=== PATIENT | female | born 1980 | race African-American/Black ===

== ENCOUNTER 2017-09-20 01:14 | Inpatient (IN) | payer MEDICARE, OTHER ==
[~2017-09-20] VITALS: Ht 175.3 cm; Wt 184.0 kg
[2017-09-20 01:16] VITALS: BP 170/102; PULSE 99; RESP 20; TEMP 98.8; O2SAT 100
[2017-09-20] MEDS ORDERED: ARIP2 PO (01:32)
[2017-09-20] MEDS ORDERED: RISP.25 PO (01:32)
[2017-09-20] MEDS ORDERED: TRAZ50TA12 PO (01:32)
[2017-09-20 02:25] VITALS: BP 138/74; PULSE 92; RESP 20; O2SAT 97
[2017-09-20 02:44] LABS: AUTOMATED NEUTROPHIL # 5.7 TH/MM3 (1.8-7.7); BASOPHIL % 0.5 % (0.0-2.0); EOSINOPHIL # 0.1 TH/MM3 (0-0.4); EOSINOPHIL % 1.3 % (0.0-4.0); HEMATOCRIT 39.3 % (35.0-46.0); HEMOGLOBIN 13.2 GM/DL (11.6-15.3); LYMPH % 33.4 % (9.0-44.0); LYMPHOCYTE # 3.3 TH/MM3 (1.0-4.8); MEAN CELL VOLUME 91.1 FL (80.0-100.0); MEAN CORPUSCULAR HEMOGLOBIN 30.5 PG (27.0-34.0); MEAN CORPUSCULAR HGB CONC 33.5 % (32.0-36.0); MEAN PLATELET VOLUME 7.4 FL (7.0-11.0); MONO % 6.8 % (0.0-8.0); MONOCYTE # 0.7 TH/MM3 (0-0.9); PLATELET COUNT 352 TH/MM3 (150-450); RED BLOOD COUNT 4.32 MIL/MM3 (4.00-5.30); RED CELL DISTRIBUTION WIDTH 13.8 % (11.6-17.2); WHITE BLOOD COUNT 9.9 TH/MM3 (4.0-11.0)
[2017-09-20] MEDS ORDERED: traZODone HCL 100 MG TAB PO ONE (03:00)
[2017-09-20] MEDS ORDERED: OLANZapine ODT 10 MG TAB PO ONE (03:00)
[2017-09-20 03:14] LABS: ALBUMIN 3.8 GM/DL (3.4-5.0); ALT (GPT) 20 U/L (10-53); AST (GOT) 11 U/L (15-37); BICARBONATE 25.7 MEQ/L (21.0-32.0); BLOOD UREA NITROGEN 12 MG/DL (7-18); CALCIUM 8.9 MG/DL (8.5-10.1); CHLORIDE 109 MEQ/L (98-107); CREATININE 1.05 MG/DL (0.50-1.00); GLOMERULAR FILTRATION RATE 72 ML/MIN (>89); GLUCOSE,RANDOM 88 MG/DL (74-106); SODIUM (NA) 142 MEQ/L (136-145)
[2017-09-20 03:24] LABS: ALKALINE PHOSPHATASE 121 U/L (45-117); TOTAL BILIRUBIN ADULT 0.2 MG/DL (0.2-1.0); TOTAL PROTEIN 8.1 GM/DL (6.4-8.2)
--- NOTE | 2017-09-20 03:48 | PD ---
HPI Chief Complaint: Psychiatric Symptoms Time Seen by Provider: 02:13 Travel History International Travel<30 days: No Contact w/Intl Traveler<30days: No Traveled to known affect area: No History of Present Illness HPI 37-year-old black female presents emergency department requesting psychological evaluation. She states that she suffers from bipolar disorder, and schizoaffective disorder. She moved up from [place] to live with her mother 2 weeks ago. She had left her medications in [facility]. She has been off her medicines now for 2 weeks. She is having auditory hallucinations. She also has had thoughts of self-harm but has no plan on hurting herself. No homicidal ideation. No toxic ingestions. Patient states that she would like to get back on her medicines. PFSH Past Medical History Narrative Medical Bipolar, schizoaffective disorder Bipolar Disorder: Yes Diminished Hearing: No Schizophrenia: Yes Tetanus Vaccination: < 5 Years Influenza Vaccination: No ?: Not Past Surgical History Surgical History: No Previous Surgery Social History Alcohol Use: Yes Tobacco Use: Yes Substance Use: No Allergies-Medications (Allergen,Severity, Reaction): Coded Allergies: No Known Allergies (Unverified , 09/20/17) Reported Meds & Prescriptions Reported Meds & Active Scripts Active Reported Risperdal (Risperidone) 0.25 Mg Tab 0.25 Mg PO DAILY Trazodone (Trazodone HCl) 50 Mg Tab 50 Mg PO HS Abilify (Aripiprazole) 2 Mg Tab 2 Mg PO DAILY Review of Systems General / Constitutional: No: Fever Eyes: No: Visual changes HENT: No: Headaches Cardiovascular: No: Chest Pain or Discomfort Respiratory: No: Shortness of Breath Gastrointestinal: No: Abdominal Pain Genitourinary: No: Dysuria Musculoskeletal: No: Pain Skin: No Rash Neurologic: No: Weakness Psychiatric: Positive: Suicidal Ideations, Disorder of Thought, Mood Disorder, No: Anxiety, Depression, Homicidal Ideation Endocrine: No: Polydipsia Hematologic/Lymphatic: No: Easy Bruising Physical Exam Narrative GENERAL: Morbidly obese, well-developed patient. SKIN: Warm and dry. HEAD: Normocephalic and atraumatic. EYES: No scleral icterus. No injection or drainage. ENT: No nasal drainage noted. Mucous membranes pink. Airway patent. NECK: Supple, trachea midline. Moves head freely without obvious discomfort. CARDIOVASCULAR: Regular rate and rhythm without murmurs, gallops, or rubs. RESPIRATORY: Breath sounds equal bilaterally. No accessory muscle use. GASTROINTESTINAL: Abdomen soft, non-tender, nondistended. EXTREMITIES: No cyanosis or edema. BACK: Nontender without obvious deformity. No CVA tenderness. NEURO: Patient is alert and oriented. no sensorimotor deficits. Nonfocal. Normal speech. PSYCH: No delusions. Positive auditory but no visual hallucinations. Data Data Last Documented VS Vital Signs Date Time Temp Pulse Resp B/P (MAP) Pulse Ox O2 Delivery O2 Flow Rate FiO2 09/20/17 02:25 92 20 138/74 (95) 97 Room Air 09/20/17 01:16 98.8 Orders Orders Psych Screen (09/20/17 02:14) Complete Blood Count With Diff (09/20/17 02:22) Comprehensive Metabolic Panel (09/20/17 02:22) Thyroid Stimulating Hormone (09/20/17 02:22) Ed Urine Pregnancytest Poc (09/20/17 02:22) Drug Screen, Random Urine (09/20/17 02:22) Alcohol (Ethanol) (09/20/17 02:22) Olanzapine Odt (Zyprexa Zydis Odt) (09/20/17 03:00) Trazodone (Desyrel) (09/20/17 03:00) Labs Laboratory Tests Test 09/20/17 02:40 09/20/17 06:00 White Blood Count 9.9 TH/MM3 Red Blood Count 4.32 MIL/MM3 Hemoglobin 13.2 GM/DL Hematocrit 39.3 % Mean Corpuscular Volume 91.1 FL Mean Corpuscular Hemoglobin 30.5 PG Mean Corpuscular Hemoglobin Concent 33.5 % Red Cell Distribution Width 13.8 % Platelet Count 352 TH/MM3 Mean Platelet Volume 7.4 FL Neutrophils (%) (Auto) 58.0 % Lymphocytes (%) (Auto) 33.4 % Monocytes (%) (Auto) 6.8 % Eosinophils (%) (Auto) 1.3 % Basophils (%) (Auto) 0.5 % Neutrophils # (Auto) 5.7 TH/MM3 Lymphocytes # (Auto) 3.3 TH/MM3 Monocytes # (Auto) 0.7 TH/MM3 Eosinophils # (Auto) 0.1 TH/MM3 Basophils # (Auto) 0.0 TH/MM3 CBC Comment DIFF FINAL Differential Comment Blood Urea Nitrogen 12 MG/DL Creatinine 1.05 MG/DL Random Glucose 88 MG/DL Total Protein 8.1 GM/DL Albumin 3.8 GM/DL Calcium Level 8.9 MG/DL Alkaline Phosphatase 121 U/L Aspartate Amino Transf (AST/SGOT) 11 U/L Alanine Aminotransferase (ALT/SGPT) 20 U/L Total Bilirubin 0.2 MG/DL Sodium Level 142 MEQ/L Potassium Level 3.6 MEQ/L Chloride Level 109 MEQ/L Carbon Dioxide Level 25.7 MEQ/L Anion Gap 7 MEQ/L Estimat Glomerular Filtration Rate 72 ML/MIN Thyroid Stimulating Hormone 3rd Gen 2.700 uIU/ML Ethyl Alcohol Level LESS THAN 3 MG/DL Urine Opiates Screen NEG Urine Barbiturates Screen NEG Urine Amphetamines Screen NEG Urine Benzodiazepines Screen NEG Urine Cocaine Screen POS Urine Cannabinoids Screen NEG MDM Medical Decision Making Medical Screen Exam Complete: Yes Emergency Medical Condition: Yes Medical Record Reviewed: Yes Interpretation(s) Laboratory Tests Test 09/20/17 02:40 09/20/17 06:00 White Blood Count 9.9 TH/MM3 Red Blood Count 4.32 MIL/MM3 Hemoglobin 13.2 GM/DL Hematocrit 39.3 % Mean Corpuscular Volume 91.1 FL Mean Corpuscular Hemoglobin 30.5 PG Mean Corpuscular Hemoglobin Concent 33.5 % Red Cell Distribution Width 13.8 % Platelet Count 352 TH/MM3 Mean Platelet Volume 7.4 FL Neutrophils (%) (Auto) 58.0 % Lymphocytes (%) (Auto) 33.4 % Monocytes (%) (Auto) 6.8 % Eosinophils (%) (Auto) 1.3 % Basophils (%) (Auto) 0.5 % Neutrophils # (Auto) 5.7 TH/MM3 Lymphocytes # (Auto) 3.3 TH/MM3 Monocytes # (Auto) 0.7 TH/MM3 Eosinophils # (Auto) 0.1 TH/MM3 Basophils # (Auto) 0.0 TH/MM3 CBC Comment DIFF FINAL Differential Comment Blood Urea Nitrogen 12 MG/DL Creatinine 1.05 MG/DL Random Glucose 88 MG/DL Total Protein 8.1 GM/DL Albumin 3.8 GM/DL Calcium Level 8.9 MG/DL Alkaline Phosphatase 121 U/L Aspartate Amino Transf (AST/SGOT) 11 U/L Alanine Aminotransferase (ALT/SGPT) 20 U/L Total Bilirubin 0.2 MG/DL Sodium Level 142 MEQ/L Potassium Level 3.6 MEQ/L Chloride Level 109 MEQ/L Carbon Dioxide Level 25.7 MEQ/L Anion Gap 7 MEQ/L Estimat Glomerular Filtration Rate 72 ML/MIN Thyroid Stimulating Hormone 3rd Gen 2.700 uIU/ML Ethyl Alcohol Level LESS THAN 3 MG/DL Urine Opiates Screen NEG Urine Barbiturates Screen NEG Urine Amphetamines Screen NEG Urine Benzodiazepines Screen NEG Urine Cocaine Screen POS Urine Cannabinoids Screen NEG Differential Diagnosis MDM: High Differential diagnoses: Schizophrenia, schizoaffective disorder, bipolar, anxiety, depression, adjustment reaction, mood disorder NOS, ODD, depressive disorder NOS, dementia, dementia with agitation, psychosis NOS, substance induced mood disorder, DMDD, Asperger syndrome, infection,electrolyte abnormality, malingering. Narrative Course Mental health screening discussed with the patient. Psychiatric screen ordered. The patient has been medically clear. Diagnosis Primary Impression: Medical clearance for psychiatric admission Condition: Stable Minh Lang Sep 20, 2017 03:48
[2017-09-20 09:00] VITALS: BP 156/68; PULSE 88; RESP 17; O2SAT 97
[2017-09-20] MEDS ORDERED: LORazepam 2 MG/ML VIAL IM PRN ×2 (09:30)
[2017-09-20] MEDS ORDERED: LORazepam 0.5 MG TAB PO PRN (09:30)
[2017-09-20] MEDS ORDERED: MAGNESIUM HYDROXIDE SUSP 30 ML CUP PO PRN (09:30)
[2017-09-20] MEDS ORDERED: ALUMINUM/MAGNESIUM/SIMETH 30 ML CUP PO PRN (09:30)
[2017-09-20] MEDS ORDERED: LORazepam 1 MG TAB PO PRN (09:30)
[2017-09-20] MEDS ORDERED: ARIPiprazole 2 MG TAB PO SCH (10:00)
[2017-09-20] MEDS: NICOTINE 21 MG/24 HR PATCH T-DERMAL SCH (10:00)
[2017-09-20 10:14] VITALS: BP 142/79; PULSE 74; RESP 18; TEMP 97.9; O2SAT 100
[2017-09-20 14:05] VITALS: BP 150/78; PULSE 65; RESP 20; O2SAT 100
--- NOTE | 2017-09-20 15:39 | HHI.HP ---
Provisional Diagnosis Admission Date Sep 20, 2017 at 09:33 Ragland I. Schizophrenia, cocaine use disorder, r/o substance-induced psychosis Ragland II. Deferred Ragland III. No significant medical history Ragland IV. No known by the service Ragland V. 35 Certification of Person's Competence To Provide Express and Informed Consent I have personally examined Og Cardenas , a person being served at [facility] on, Sep 20, 2017 15:29. Express and informed consent means consent voluntarily given in writing, by a competent person, after sufficient explanation and disclosure of the subject matter involved to enable the person to make a knowing and willful decision without any element of force, fraud, deceit, duress, or other form of constraint or coercion. This person is 18 years of age or older, is not now known to be incompetent to consent to treatment with a guardian advocate, and does not have a health care surrogate or proxy currently making medical treatment decisions. I have found this person to be one of the following: [x] Competent to provide express and informed consent, as defined above, for voluntary admission to this facility and is competent to provide express and informed consent for treatment. He/she has the consistent capacity to make well reasoned, willful, and knowing decisions concerning his or her medical or mental health treatment. The person fully and consistently understands the purpose of the admission for examination/placement and is fully capable of personally exercising all rights assured [place] Incompetent to provide express and informed consent to voluntary admission, and this is incompetent to provide express and informed consent to treatment. The person must be transferred to involuntary status and a petition for a guardian advocate filed with the Circuit Court. [] Refusing to provide express and informed consent to voluntary admission but is competent to provide express and informed consent for treatment. The person must be discharged or transferred to involuntary status. Form shall be completed within 24 hours of a person's arrival at the receiving facility and filed in the clinical record of each person: 1. Admitted on a voluntary basis 2. Permitted to provide express and informed consent to his/her own treatment 3. Allowed to transfer from involuntary to voluntary status 4. Prior to permitting a person to consent to his or her own treatment after having been previously found incompetent to consent to treatment. History of Present Illness Capacity: Has Capacity HPI The patient is a 37-year-old -[place] obese woman, she is domiciled with her mother, single, unemployed, supported by [facility], first time at [facility], with reported psychiatric history of schizophrenia, cocaine use disorder , multiple psychiatric admissions, previous suicidal attempts, she is on Abilify 10 mg, trazodone 100 mg at bedtime, does not remember the name of her psychiatrist, no significant medical history, presents emergency department requesting psychological evaluation. On initial evaluation she states that she suffers from bipolar disorder, and schizoaffective disorder. She moved up from [place] to live with her mother 2 weeks ago. She had left her medications in [facility]. She has been off her medicines now for 2 weeks. She is having auditory hallucinations. She also has had thoughts of self-harm but has no plan on hurting herself. No homicidal ideation. No toxic ingestions. Patient states that she would like to get back on her medicines. EMR was reviewed. I try to get collateral information from her mother to the telephone [phone], but her mother did not seed cone picker the phone. On my psychiatric evaluation today the patient is found sleeping, difficult to arouse. Once the patient is awake and alert, the patient seems to be quite reluctant and oppositional to cooperate with evaluation. She answers just selectively to my questions.. She does report that she came here voluntarily for help. She states that she has been hearing voices telling her to kill herself, she has been feeling quite depressed with persistent suicidal ideation, she has been treated her voices with cocaine, which she would like to go back to her psychotropics. He says that in the past she has being in Abilify 10 mg and trazodone 100 with good response. The patient is oddly related, seems to be internally preoccupied, very guarded. She is oriented 3, no attention deficit present. No signs of intoxication or withdrawal present. No agitation or aggressive behavior at this moment. Review of Systems Constitutional: DENIES: Diaphoretic episodes, Fatigue, Fever, Weight gain, Weight loss, Chills, Dizziness, Change in appetite, Night Sweats Endocrine: DENIES: Abnorml menstrual pattern, Heat/cold intolerance, Polydipsia , Polyuria, Polyphagia Eyes: DENIES: Blurred vision, Diplopia, Eye inflammation, Eye pain, Vision loss , Photosensitivity, Double Vision Ears, nose, mouth, throat: DENIES: Tinnitus, Hearing loss, Vertigo, Nasal discharge, Oral lesions, Throat pain, Hoarseness, Ear Pain, Running Nose, Epistaxis, Sinus Pain, Toothache, Odynophagia Respiratory: DENIES: Apneas, Cough, Snoring, Wheezing, Hemoptysis, Sputum production, Shortness of breath Cardiovascular: DENIES: Chest pain, Palpitations, Syncope, Dyspnea on Exertion , PND, Lower Extremity Edema, Orthopnea, Claudication Gastrointestinal: DENIES: Abdominal pain, Black stools, Bloody stools, Constipation, Diarrhea, Nausea, Vomiting, Difficulty Swallowing, Anorexia Genitourinary: DENIES: Abnormal vaginal bleeding, Dysmenorrhea, Dyspareunia, Sexual dysfunction, Urinary frequency, Urinary incontinence, Urgency, Hematuria , Dysuria, Nocturia, Vaginal discharge Hematologic/lymphatic: DENIES: Bruising, Lymphadenopathy Immunologic/allergic: DENIES: Eczema, Urticaria Neurologic: DENIES: Abnormal gait, Headache, Localized weakness, Paresthesias, Seizures, Speech Problems, Tremor, Poor Balance Psychiatric: COMPLAINS OF: Depression, Hallucinations, DENIES: Anxiety, Confusion, Mood changes, Agitation, Suicidal Ideation, Homicidal Ideation, Delusions Substance Abuse History Drugs/Alcohol past 12 months Patient reports use of cocaine every day Past Family Social History Coded Allergies: No Known Allergies (Unverified , 09/20/17) Reported Medications Risperidone (Risperdal) 0.25 Mg Tab, 0.25 MG PO DAILY, #30 TAB 0 Refills 09/20/17 Trazodone (Trazodone) 50 Mg Tab, 50 MG PO HS for Control Depression, #30 TAB 0 Refills 09/20/17 Aripiprazole (Abilify) 2 Mg Tab, 2 MG PO DAILY, #30 TAB 0 Refills 09/20/17 Current Medications Medications (Trade) Dose Ordered Sig/Vidal Route Start Time Stop Time Status Last Admin (Abilify) 2 mg DAILY PO 09/20/17 10:00 (Ativan Inj) 1 mg Q6H PRN IM 09/20/17 09:30 (Ativan Inj) 0.5 mg Q12H PRN IM 09/20/17 09:30 (Tylenol) 650 mg Q4H PRN PO 09/20/17 09:30 (Milk Of Magnesia Liq) 30 ml DAILY PRN PO 09/20/17 09:30 (Mag-Al Plus Susp Liq) 30 ml Q6H PRN PO 09/20/17 09:30 (Habitrol 21 Mg Patch.24 Hr) 1 patch DAILY T-DERMAL 09/20/17 10:00 Miscellaneous Information 1 HS T-DERMAL 09/20/17 21:00 Family Psych History Her mother has bipolar Social History Patient was born and raised in [place], she says that she has recently moved to [facility] from [place], she lives with her mother, she is unemployed, single, supported by [facility] Patient's Strengths (min. 2) Verbal communication Physical Exam Patient seems to be quite hypoactive, psychomotor retardation, guarded, but no withdrawal, no EPS, no catatonia Vital Signs Vital Signs Date Time Temp Pulse Resp B/P (MAP) Pulse Ox O2 Delivery O2 Flow Rate FiO2 09/20/17 14:05 65 20 150/78 (102) 100 Room Air 09/20/17 10:14 97.9 Lab Results Test 09/20/17 02:40 09/20/17 06:00 White Blood Count 9.9 TH/MM3 Red Blood Count 4.32 MIL/MM3 Hemoglobin 13.2 GM/DL Hematocrit 39.3 % Mean Corpuscular Volume 91.1 FL Mean Corpuscular Hemoglobin 30.5 PG Mean Corpuscular Hemoglobin Concent 33.5 % Red Cell Distribution Width 13.8 % Platelet Count 352 TH/MM3 Mean Platelet Volume 7.4 FL Neutrophils (%) (Auto) 58.0 % Lymphocytes (%) (Auto) 33.4 % Monocytes (%) (Auto) 6.8 % Eosinophils (%) (Auto) 1.3 % Basophils (%) (Auto) 0.5 % Neutrophils # (Auto) 5.7 TH/MM3 Lymphocytes # (Auto) 3.3 TH/MM3 Monocytes # (Auto) 0.7 TH/MM3 Eosinophils # (Auto) 0.1 TH/MM3 Basophils # (Auto) 0.0 TH/MM3 CBC Comment DIFF FINAL Differential Comment Blood Urea Nitrogen 12 MG/DL Creatinine 1.05 MG/DL Random Glucose 88 MG/DL Total Protein 8.1 GM/DL Albumin 3.8 GM/DL Calcium Level 8.9 MG/DL Alkaline Phosphatase 121 U/L Aspartate Amino Transf (AST/SGOT) 11 U/L Alanine Aminotransferase (ALT/SGPT) 20 U/L Total Bilirubin 0.2 MG/DL Sodium Level 142 MEQ/L Potassium Level 3.6 MEQ/L Chloride Level 109 MEQ/L Carbon Dioxide Level 25.7 MEQ/L Anion Gap 7 MEQ/L Estimat Glomerular Filtration Rate 72 ML/MIN Thyroid Stimulating Hormone 3rd Gen 2.700 uIU/ML Ethyl Alcohol Level LESS THAN 3 MG/DL Urine Opiates Screen NEG Urine Barbiturates Screen NEG Urine Amphetamines Screen NEG Urine Benzodiazepines Screen NEG Urine Cocaine Screen POS Urine Cannabinoids Screen NEG Mental Status Examination Appearance: Dirty, Disheveled Consciousness: Alert Orientation: x4 Motor Activity: Normal gait Speech: Unremarkable Language: Adequate Fund of Knowledge: Adequate Attention and Concentration: Adequate Memory: Unremarkable Mood: Angry Affect: Irritable Thought Process & Associations: Intact Thought Content: Thought blocking Hallucination Type: Auditory Delusion Type: Bizarre, Paranoid Suicidal Ideation: No Suicidal Plan: No Suicidal Intention: No Homicidal Ideation: No Homicidal Plan: No Homicidal Intention: No Insight: Poor Judgment: Poor Assessment & Plan Problem List: (1) Schizophrenia ICD Codes: F20.9 - Schizophrenia, unspecified Assessment & Plan: On psychiatric evaluation today the patient presented guarded, irritable, oddly related, internally preoccupied, no very forthcoming with my interview. She reports that she has been hearing voices telling her to kill herself, she has been depressed, in the context of cocaine use and noncompliant with her psychotropics. Patient came voluntarily asking to be restarted in her medications. She reports psychiatric history of schizophrenia , multiple psychiatric hospitalizations, suicide attempts, she has been stable in Abilify 10 mg and trazodone 100 mg at bedtime in the past. No collateral information available at this moment. The patient is new [place]. Giving her presents observed and reported psychosis the patient will be admitted in psychiatry for stabilization and safety. Will be started in Abilify 5 mg and trazodone 15 mg at bedtime. Collateral information is still pending to complete the psychiatric assessment, as well as longitudinal observation of mood and behavior to get a sense of the nature of psychosis versus potential malingering. Patient will be admitted in 2700. food service worker hospital intervention for collateral information, individual and group therapies, psychosocial assessment , to coordinate safe discharge. Assessment & Plan Estimated LOS: days Sukhwinder Parisi MD Sep 20, 2017 15:39
[2017-09-20 16:58] VITALS: BP 151/104; PULSE 73; RESP 17; TEMP 98.7; O2SAT 100
[2017-09-20] MEDS: REMOVE OLD NICODERM (NICOTINE) PATCH T-DERMAL SCH (20:58)
[2017-09-21 05:55] VITALS: BP 153/83; PULSE 75; RESP 16; TEMP 97.8; O2SAT 96
[2017-09-21] MEDS: ARIPiprazole 2 MG TAB PO SCH (08:47)
[2017-09-21] MEDS: NICOTINE 21 MG/24 HR PATCH T-DERMAL SCH (09:00)
[2017-09-21 14:53] LABS: BLOOD UREA NITROGEN 13 MG/DL (7-18); CALCIUM 9.2 MG/DL (8.5-10.1); CHLORIDE 108 MEQ/L (98-107); CREATININE 1.27 MG/DL (0.50-1.00); GLOMERULAR FILTRATION RATE 58 ML/MIN (>89); GLUCOSE,RANDOM 97 MG/DL (74-106); SODIUM (NA) 142 MEQ/L (136-145)
[2017-09-21 14:54] LABS: CHOLESTEROL 114 MG/DL (120-200); TRIGLYCERIDES 152 MG/DL (42-150)
[2017-09-21 14:56] LABS: CHOLESTEROL/ HDL RATIO 3.43 RATIO; HDL CHOLESTEROL 33.2 MG/DL (40.0-60.0); LDL CHOLESTEROL 50 MG/DL (0-99)
[2017-09-21 16:43] LABS: HEMOGLOBIN A1C 5.6 % (4.3-6.0)
[2017-09-21] MEDS ORDERED: hydrOXYzine HCL 50 MG TAB PO PRN (17:15)
--- NOTE | 2017-09-21 17:20 | HHI.PYPN ---
Subjective Remarks Patient seen in her room with nurse Karthikeyan and medical student Marilynn, chart reviewed, patient admitted by Dr. Quoc Elaine's H&P reviewed and agreed with. Dr. Elaine has allow the patient to sign voluntary. I have completed the initial psychiatric admission template orders and review of the med reconciliation. Patient acknowledge being of multiple drug abuse or for a number of years having a recent rehab for the past few months having little sobriety after that. She now states she wants him to some type of rehab program. She acknowledges auditory hallucinations at this time acknowledges also a long history of mental illness Review of Systems Except as stated in HPI: all other systems reviewed are Neg Mental Status Examination Appearance: Dirty, Disheveled Consciousness: Alert Orientation: x4 Motor Activity: Normal gait Speech: Unremarkable Language: Adequate Fund of Knowledge: Adequate Attention and Concentration: Adequate Memory: Unremarkable Mood: Angry Affect: Irritable Thought Process & Associations: Intact Thought Content: Thought blocking Hallucination Type: Auditory Delusion Type: Bizarre, Paranoid Suicidal Ideation: No Suicidal Plan: No Suicidal Intention: No Homicidal Ideation: No Homicidal Plan: No Homicidal Intention: No Insight: Poor Judgment: Poor Results Labs Test 09/21/17 14:12 Blood Urea Nitrogen 13 MG/DL Creatinine 1.27 MG/DL Random Glucose 97 MG/DL Calcium Level 9.2 MG/DL Sodium Level 142 MEQ/L Potassium Level 4.1 MEQ/L Chloride Level 108 MEQ/L Carbon Dioxide Level 24.0 MEQ/L Anion Gap 10 MEQ/L Estimat Glomerular Filtration Rate 58 ML/MIN Hemoglobin A1c 5.6 % Triglycerides Level 152 MG/DL Cholesterol Level 114 MG/DL LDL Cholesterol 50 MG/DL HDL Cholesterol 33.2 MG/DL Cholesterol/HDL Ratio 3.43 RATIO Vitals/IOs Vital Signs Date Time Temp Pulse Resp B/P (MAP) Pulse Ox O2 Delivery O2 Flow Rate FiO2 09/21/17 05:55 97.8 75 16 153/83 (106) 96 09/20/17 14:05 Room Air Assessment & Plan Problem List: (1) Schizophrenia ICD Codes: F20.9 - Schizophrenia, unspecified Assessment & Plan Estimated LOS: days patient's psychosis persists though she is showing some slight insight. She is also trying some minimization of the degree of her addictions Justification for Cont. Inpt. At this time patient would decompensate a place to a lower level of care Discharge Planning To be determined Joseph Avery MD Sep 21, 2017 17:20
[2017-09-21 17:40] VITALS: BP 137/104; PULSE 88; RESP 18; TEMP 98.1; O2SAT 98
[2017-09-21] MEDS: REMOVE OLD NICODERM (NICOTINE) PATCH T-DERMAL SCH (20:08)
[2017-09-22 06:18] VITALS: BP 189/94; PULSE 84; RESP 16; TEMP 99.3; O2SAT 100
[2017-09-22] MEDS: ARIPiprazole 2 MG TAB PO SCH (08:38)
[2017-09-22] MEDS: NICOTINE 21 MG/24 HR PATCH T-DERMAL SCH (08:41)
--- NOTE | 2017-09-22 16:53 | HHI.PYPN ---
Subjective Remarks Reviewed electronic medical record and discuss case with staff. Follow-up was conducted in [place] with patient sitting in chair by phone. She reports that she feels "good". She denies any thoughts of self-harm, auditory or visual hallucinations. When asked how she slept she responded, "wonderful". States that she has been eating okay and denies any present concerns. Mental Status Examination Appearance: Dirty, Disheveled Consciousness: Alert Orientation: x4 Motor Activity: Normal gait Speech: Unremarkable Language: Adequate Fund of Knowledge: Adequate Attention and Concentration: Adequate Memory: Unremarkable Mood: Angry Affect: Irritable Thought Process & Associations: Intact Thought Content: Thought blocking Hallucination Type: Auditory Delusion Type: Bizarre, Paranoid Suicidal Ideation: No Suicidal Plan: No Suicidal Intention: No Homicidal Ideation: No Homicidal Plan: No Homicidal Intention: No Insight: Poor Judgment: Poor Results Vitals/IOs Vital Signs Date Time Temp Pulse Resp B/P (MAP) Pulse Ox O2 Delivery O2 Flow Rate FiO2 09/22/17 06:18 99.3 84 16 189/94 (125) 100 09/20/17 14:05 Room Air Assessment & Plan Problem List: (1) Schizophrenia ICD Codes: F20.9 - Schizophrenia, unspecified Assessment & Plan Estimated LOS: Discharge plan is in progress. Continue with current treatment plan. Days Justification for Cont. Inpt. Moving this patient to a lower level of care would likely result in decompensation. Veronique Mcbride Sep 22, 2017 16:53
[2017-09-23] MEDS: ACETAMINOPHEN 325 MG TAB PO PRN (03:16)
[2017-09-23 06:28] VITALS: BP 156/88; PULSE 75; RESP 17; TEMP 97.9; O2SAT 99
[2017-09-23] MEDS: ARIPiprazole 2 MG TAB PO SCH (09:00)
--- NOTE | 2017-09-23 14:10 | HHI.PYPN ---
Subjective Remarks Patient was seen and case discussed with nursing. Patient's behavior has improved from yesterday. She has not required any ETO's. On her own, patient has found a treatment center where she has a bed on Monday. She is motivated to get off drugs. She is future oriented discussing plans to go back to school. Mental Status Examination Appearance: Dirty, Disheveled Consciousness: Alert Orientation: x4 Motor Activity: Normal gait Speech: Unremarkable Language: Adequate Fund of Knowledge: Adequate Attention and Concentration: Adequate Memory: Unremarkable Mood: Appropriate Affect: Appropriate Thought Process & Associations: Intact Thought Content: Thought blocking Hallucination Type: Auditory Delusion Type: Bizarre, Paranoid Suicidal Ideation: No Suicidal Plan: No Suicidal Intention: No Homicidal Ideation: No Homicidal Plan: No Homicidal Intention: No Insight: Poor Judgment: Poor Results Vitals/IOs Vital Signs Date Time Temp Pulse Resp B/P (MAP) Pulse Ox O2 Delivery O2 Flow Rate FiO2 09/23/17 06:28 97.9 75 17 156/88 (110) 99 09/20/17 14:05 Room Air Assessment & Plan Problem List: (1) Schizophrenia ICD Codes: F20.9 - Schizophrenia, unspecified Assessment & Plan Continue current treatment plan Justification for Cont. Inpt. Patient would decompensate in a less restrictive setting Lul Baird DO Sep 23, 2017 14:10
[2017-09-23 17:56] VITALS: BP 128/86; PULSE 84; RESP 18; TEMP 98.1; O2SAT 97
[2017-09-24 05:59] VITALS: BP 158/81; PULSE 74; RESP 18; TEMP 98.1; O2SAT 98
[2017-09-24] MEDS: ARIPiprazole 2 MG TAB PO SCH (09:00)
--- NOTE | 2017-09-24 12:03 | HHI.PYPN ---
Subjective Remarks Patient was seen and case discussed with nursing. Tena had on a bracelet of multiple socks in her hand. She was asked to give it up and she did so willingly. Behaving well on the unit. Social with others. Eating well. No ETO's were needed. Compliant with medications Mental Status Examination Appearance: Dirty, Disheveled Consciousness: Alert Orientation: x4 Motor Activity: Normal gait Speech: Unremarkable Language: Adequate Fund of Knowledge: Adequate Attention and Concentration: Adequate Memory: Unremarkable Mood: Appropriate Affect: Appropriate Thought Process & Associations: Intact Thought Content: Thought blocking Hallucination Type: Auditory Delusion Type: Bizarre, Paranoid Suicidal Ideation: No Suicidal Plan: No Suicidal Intention: No Homicidal Ideation: No Homicidal Plan: No Homicidal Intention: No Insight: Poor Judgment: Poor Results Vitals/IOs Vital Signs Date Time Temp Pulse Resp B/P (MAP) Pulse Ox O2 Delivery O2 Flow Rate FiO2 09/24/17 05:59 98.1 74 18 158/81 (106) 98 09/20/17 14:05 Room Air Assessment & Plan Problem List: (1) Schizophrenia ICD Codes: F20.9 - Schizophrenia, unspecified Assessment & Plan Continue current treatment plan Justification for Cont. Inpt. Patient would decompensate in a less restrictive setting Lul Baird DO Sep 24, 2017 12:03
[2017-09-24 15:20] VITALS: BP 135/63; PULSE 81; RESP 17; TEMP 98.1
[2017-09-24] MEDS: ACETAMINOPHEN 325 MG TAB PO PRN (20:10)
[2017-09-25 06:23] VITALS: BP 142/75; PULSE 71; RESP 18; TEMP 98.7; O2SAT 98
[2017-09-25] MEDS: ARIPiprazole 2 MG TAB PO SCH (08:54)
[2017-09-25] MEDS ORDERED: ABIL10TA8 PO (10:45)
--- NOTE | 2017-09-25 10:50 | HHI.DS ---
Psychiatry Discharge Summary Inpatient Psychiatric care?: Yes Advance Directive: No Reason Not Provided: Due to Patient Condition Mental Health AdvanceDirective: No Health Care Proxy: No Admission Admission Date Sep 20, 2017 at 09:33 Admission Diagnosis: (1) Schizophrenia ICD Code: F20.9 - Schizophrenia, unspecified Brief History The patient is a 37-year-old -[place] obese woman, she is domiciled with her mother, single, unemployed, supported by [facility], first time at [facility], with reported psychiatric history of schizophrenia, cocaine use disorder , multiple psychiatric admissions, previous suicidal attempts, she is on Abilify 10 mg, trazodone 100 mg at bedtime, does not remember the name of her psychiatrist, no significant medical history, presents emergency department requesting psychological evaluation. On initial evaluation she states that she suffers from bipolar disorder, and schizoaffective disorder. She moved up from [place] to live with her mother 2 weeks ago. She had left her medications in [facility]. She has been off her medicines now for 2 weeks. She is having auditory hallucinations. She also has had thoughts of self-harm but has no plan on hurting herself. No homicidal ideation. No toxic ingestions. Patient states that she would like to get back on her medicines. EMR was reviewed. I try to get collateral information from her mother to the telephone [phone], but her mother did not nut picker the phone. On my psychiatric evaluation today the patient is found sleeping, difficult to arouse. Once the patient is awake and alert, the patient seems to be quite reluctant and oppositional to cooperate with evaluation. She answers just selectively to my questions.. She does report that she came here voluntarily for help. She states that she has been hearing voices telling her to kill herself, she has been feeling quite depressed with persistent suicidal ideation, she has been treated her voices with cocaine, which she would like to go back to her psychotropics. He says that in the past she has being in Abilify 10 mg and trazodone 100 with good response. The patient is oddly related, seems to be internally preoccupied, very guarded. She is oriented 3, no attention deficit present. No signs of intoxication or withdrawal present. No agitation or aggressive behavior at this moment. Tobacco Use In Past 30 Days: 5 or More Cigarettes/Day Alcohol Use: Never Hospital Course Patient's hospital course was uneventful, she showed compliance with medication without difficulty. She did have a good weekend. Patient now denies suicidality homicidality voices or visions. She is excited about getting to the program at [facility] in [place]. Patient was discharged states that facility with Rx Abilify 5 mg daily Results Blood Pressure 142 / 75 Vital Signs Date Time Temp Pulse Resp B/P (MAP) Pulse Ox O2 Delivery O2 Flow Rate FiO2 09/25/17 06:23 98.7 71 18 142/75 (97) 98 Laboratory Results Test 09/21/17 14:12 Cholesterol Level 114 MG/DL (120-200) HDL Cholesterol 33.2 MG/DL (40.0-60.0) Hemoglobin A1c 5.6 % (4.3-6.0) LDL Cholesterol 50 MG/DL (0-99) Triglycerides Level 152 MG/DL (42-150) Summary of Procedures None done Pending results at discharge: No Medications # of Antipsychotic meds at D/C: 1 Approp Antipsych med options 1 - Minimum of three failed multiple trials of monotherapy. 2 - Documented plan to taper to monotherapy due to previous use of multiple meds OR cross-taper in progress at D/C. 3 - Documentation of augmentation of Clozapine. 4 - Justification other than those listed in allowable values 1-3, document here : Discharge Discharge Date: Sep 25, 2017 Discharge Diagnosis: (1) Schizophrenia ICD Code: F20.9 - Schizophrenia, unspecified Pt Condition on Discharge: Stable Discharge Disposition: Trnsfr to Other Facility Discharge Instructions Diet Instructions: As Tolerated, No Restrictions Activities you can perform: Regular-No Restrictions Scheduled Appointment: Follow-up mental health services at [facility] Discharge Time > 30 minutes Mental Status Examination Appearance: Dirty, Disheveled Consciousness: Alert Orientation: x4 Motor Activity: Normal gait Speech: Unremarkable Language: Adequate Fund of Knowledge: Adequate Attention and Concentration: Adequate Memory: Unremarkable Mood: Appropriate Affect: Appropriate Thought Process & Associations: Intact Thought Content: Thought blocking Hallucination Type: Auditory Delusion Type: Bizarre, Paranoid Suicidal Ideation: No Suicidal Plan: No Suicidal Intention: No Homicidal Ideation: No Homicidal Plan: No Homicidal Intention: No Insight: Poor Judgment: Poor Discharge/Advance Care Plan Health Problems: (1) Schizophrenia Goals to promote your health * To prevent worsening of your condition and complications * To maintain your health at the optimal level Directions to meet your goals Take your medications as prescribed Follow your dietary instruction Follow activity as directed Keep your appointments as scheduled Take your immunizations and boosters as scheduled If your symptoms worsen call your PCP, if no PCP go to Urgent Care Center or Emergency Room For 31/10 questions related to your inpatient stay or results of tests pending at discharge, please contact Dr. Joseph Avery at Smoking is Dangerous to Your Health. Avoid second hand smoking Problem Qualifiers (1) Schizophrenia: Qualified Codes: F20.0 - Paranoid schizophrenia Joseph Avery MD Sep 25, 2017 10:50
== END 2017-09-25 12:30 | disposition short-term general hospital (02) | DRG 885 ==
LOC: NEPD 01:14 → NEDA 09:33 → H270 15:25
PROVIDERS: ADMIT Psychiatry & Neurology Psychiatry; ATTEND Psychiatry & Neurology Psychiatry
DX: F20.9 Schizophrenia, unspecified (principal); Z68.43 Body mass index [BMI] 50.0-59.9, adult; Z91.19 Patient's noncompliance with other medical treatment and regimen; E66.01 Morbid (severe) obesity due to excess calories; F14.90 Cocaine use, unspecified, uncomplicated; Z81.8 Family history of other mental and behavioral disorders
CPT/HCPCS: 80048; 80053; 80061; 80307; 83036; 84443; 84703; 85025; J2060

== ENCOUNTER 2017-12-17 08:12 | Inpatient (IN) ==
--- NOTE | 2017-12-17 08:33 | ED ---
HPI General Chief Complaint: Psychiatric Symptoms Stated Complaint: Psych Eval/DBPD Time Seen by Provider: 12/17/17 08:28 Source: patient Mode of arrival: other (DBPD) Limitations: no limitations History of Present Illness HPI Narrative: 37-year-old female with a history of depression presents to the emergency department for evaluation as a Ambrosio act with suicidal ideations. Patient states that she ran out of her medications and has been unable to refill them. She also says that she lost them. She has been unable to see her primary care physician. She has no other complaints today. MD complaint: suicidal ideation and feels depressed Onset (ago): hour(s) Duration: constant History of same: Yes Relieving factors: medication Exacerbating factors: none Context: other (stopped medications) Associated psychiatric symptoms: depression and suicidal ideation Associated symptoms: denies other symptoms Treatments prior to arrival: none If self harm: admits thoughts of self harm Details of plan: Wants to cut her wrists. Related Data Home Medications Medication Instructions Recorded Confirmed aripiprazole [Abilify] 10 mg PO DAILY 12/17/17 12/17/17 sertraline [Zoloft] 50 mg PO DAILY 12/17/17 12/17/17 trazodone 100 mg PO DAILY 12/17/17 12/17/17 Allergies Allergy/AdvReac Type Severity Reaction Status Date / Time No Known Allergies Allergy Verified 12/17/17 08:45 Review of Systems ROS: all other systems reviewed are negative PMFSH History History Provided By: Patient Medical History Medical History Bipolar disorder (Acute) Patient denies medical problems (Acute) Schizophrenia (Acute) Surgical History Surgical History No history of previous surgery (Acute) Social History Social History Substance History: Active Abuse Smoking Status: Current every day smoker Tobacco Type: Cigarettes How Often Do You Have a Drink Containing Alcohol: 2 to 4 times a month Recent Travel in [facility] within the Last 8 Weeks: No Recent Out of Country Travel within the Last 8 Weeks: No Exam Narrative Exam Narrative: GENERAL: WD, WN in mild distress, tearful SKIN: Focused skin assessment warm/dry. HEAD: Atraumatic. Normocephalic. EYES: Pupils equal and round. No scleral icterus. No injection or drainage. ENT: No nasal bleeding or discharge. Mucous membranes pink and moist. NECK: Trachea midline. No JVD. CARDIOVASCULAR: Regular rate and rhythm. No murmur appreciated. RESPIRATORY: No accessory muscle use. Clear to auscultation. Breath sounds equal bilaterally. GASTROINTESTINAL: Abdomen soft, non-tender, nondistended. Hepatic and splenic margins not palpable. MUSCULOSKELETAL: No obvious deformities. No clubbing. No cyanosis. No edema. NEUROLOGICAL: Awake and alert. No obvious cranial nerve deficits. Motor grossly within normal limits. Normal speech. PSYCHIATRIC:Tearful, sad appearing upon evaluation Course Initial Documented Vital Signs Temperature 98.3 F 12/17/17 08:22 Pulse Rate 83 12/17/17 08:22 Blood Pressure 143/78 H 12/17/17 08:22 Pulse Oximetry 98 12/17/17 08:22 Last Documented Vital Signs Temperature 98.3 F 12/18/17 14:24 Pulse Rate 87 12/18/17 14:24 Respiratory Rate 18 12/18/17 14:24 Blood Pressure 117/72 12/18/17 14:24 Pulse Oximetry 100 12/18/17 09:55 Medical Decision Making MDM Narrative Medical decision making narrative: 37-year-old female presents to the emergency department as a Ambrosio act for suicidal ideations. Patient apparently has a history of schizophrenia and depression. She says that she either ran out or misplaced her medications. She says that she has been unable to follow-up with her primary care physician for refills. She has no other complaints today. Her labs are stable. Patient is medically cleared to see psych. Medical Screen Exam Complete: Yes Emergency Medical Condition: Yes Lab Data Result diagrams: 12/17/17 09:00 12/17/17 09:00 POC Results POC Urine Results Negative Lab Results 12/17/17 12/17/17 12/17/17 Range/Units 09:00 09:00 09:00 WBC 9.9 (4.0-11.0) th/mm3 RBC 4.15 (4.00-5.30) mil/mm3 Hgb 12.3 (11.6-15.3) gm/dL Hct 37.9 (35.0-46.0) % MCV 91.4 (80.0-100.0) fL MCH 29.7 (27.0-34.0) pg MCHC 32.5 (32.0-36.0) % RDW 14.5 (11.6-17.2) % Plt Count 335 (150-450) th/mm3 MPV 7.3 (7.0-11.0) fL Neut % (Auto) 66.4 (16.0-70.0) % Lymph % (Auto) 23.0 (9.0-44.0) % [place] % (Auto) 9.1 H (0.0-8.0) % Eos % (Auto) 1.0 (0.0-4.0) % Baso % (Auto) 0.5 (0.0-2.0) % Neut # (Auto) 6.6 (1.8-7.7) th/mm3 Lymph # (Auto) 2.3 (1.0-4.8) th/mm3 [place] # (Auto) 0.9 (0.0-0.9) th/mm3 Eos # (Auto) 0.1 (0.0-0.4) th/mm3 Baso # (Auto) 0.0 (0.0-0.2) th/mm3 WBC Differential . Differential Comment Auto diff final Sodium 143 (136-145) meq/L Potassium 3.8 (3.5-5.1) meq/L Chloride 108 H (98-107) meq/L Carbon Dioxide 26.8 (21.0-32.0) meq/L Anion Gap 8 (5-15) meq/L BUN 12 (7-18) mg/dL Creatinine 1.12 H (0.50-1.00) mg/dL Estimated GFR 67 L (>89) mL/min Random Glucose 93 (74-106) mg/dL Calcium 9.2 (8.5-10.1) mg/dL Total Bilirubin 0.6 (0.2-1.0) mg/dL AST 51 H (15-37) U/L ALT 34 (10-53) U/L Alkaline Phosphatase 70 (45-117) U/L Total Protein 7.9 (6.4-8.2) g/dL Albumin 3.7 (3.4-5.0) g/dL TSH 1.560 (0.358-3.740) uIU/mL Urine Color Lauryn (Yellw/Straw) Urine Clarity Cloudy H (Clear) Urine pH 5.0 (5.0-8.5) Ur Specific [place] 1.034 (1.002-1.035) Urine Protein 30 H (Neg-Trace) mg/dL Urine Glucose (UA) Negative (Negative) mg/dL Urine Ketones Trace H (Negative) mg/dL Urine Occult Blood Negative (Negative) Urine Nitrate Negative (Negative) Urine Bilirubin Negative (Negative) Urine Urobilinogen 4 or greater (Less than 2) mg/dL Ur Leukocyte Esterase Negative (Negative) Urine RBC 2 (0-3) /hpf Urine WBC 3 (0-5) /hpf Ur Squamous Epith Cells 13 (0-5) /hpf Urine Bacteria Few H (None) /hpf Urine Mucus Moderate H (Occasional) /lpf Micro UA Comment Culture not ind Ur Microscopic Review Not Reportable Urine Culture Comments Culture not ind Urine Opiates Screen (Neg) Ur Barbiturates Screen (Neg) Ur Amphetamines Screen (Neg) U Benzodiazepines Scrn (Neg) Urine Cocaine Screen (Neg) U Cannabinoids Screen (Neg) Serum Alcohol Less than 3 (0-5) mg/dL 12/17/17 Range/Units 09:00 WBC (4.0-11.0) th/mm3 RBC (4.00-5.30) mil/mm3 Hgb (11.6-15.3) gm/dL Hct (35.0-46.0) % MCV (80.0-100.0) fL MCH (27.0-34.0) pg MCHC (32.0-36.0) % RDW (11.6-17.2) % Plt Count (150-450) th/mm3 MPV (7.0-11.0) fL Neut % (Auto) (16.0-70.0) % Lymph % (Auto) (9.0-44.0) % [place] % (Auto) (0.0-8.0) % Eos % (Auto) (0.0-4.0) % Baso % (Auto) (0.0-2.0) % Neut # (Auto) (1.8-7.7) th/mm3 Lymph # (Auto) (1.0-4.8) th/mm3 [place] # (Auto) (0.0-0.9) th/mm3 Eos # (Auto) (0.0-0.4) th/mm3 Baso # (Auto) (0.0-0.2) th/mm3 WBC Differential Differential Comment Sodium (136-145) meq/L Potassium (3.5-5.1) meq/L Chloride (98-107) meq/L Carbon Dioxide (21.0-32.0) meq/L Anion Gap (5-15) meq/L BUN (7-18) mg/dL Creatinine (0.50-1.00) mg/dL Estimated GFR (>89) mL/min Random Glucose (74-106) mg/dL Calcium (8.5-10.1) mg/dL Total Bilirubin (0.2-1.0) mg/dL AST (15-37) U/L ALT (10-53) U/L Alkaline Phosphatase (45-117) U/L Total Protein (6.4-8.2) g/dL Albumin (3.4-5.0) g/dL TSH (0.358-3.740) uIU/mL Urine Color (Yellw/Straw) Urine Clarity (Clear) Urine pH (5.0-8.5) Ur Specific [place] (1.002-1.035) Urine Protein (Neg-Trace) mg/dL Urine Glucose (UA) (Negative) mg/dL Urine Ketones (Negative) mg/dL Urine Occult Blood (Negative) Urine Nitrate (Negative) Urine Bilirubin (Negative) Urine Urobilinogen (Less than 2) mg/dL Ur Leukocyte Esterase (Negative) Urine RBC (0-3) /hpf Urine WBC (0-5) /hpf Ur Squamous Epith Cells (0-5) /hpf Urine Bacteria (None) /hpf Urine Mucus (Occasional) /lpf Micro UA Comment Ur Microscopic Review Urine Culture Comments Urine Opiates Screen Neg (Neg) Ur Barbiturates Screen Neg (Neg) Ur Amphetamines Screen Neg (Neg) U Benzodiazepines Scrn Neg (Neg) Urine Cocaine Screen Pos H (Neg) U Cannabinoids Screen Neg (Neg) Serum Alcohol (0-5) mg/dL Discharge Plan Discharge Disposition Patient Disposition: 30 Still Patient Discharge Condition Condition: Stable Discharge Details Diagnosis: Depression with suicidal ideation, Noncompliance with medication regimen Physicians Team ED Provider: Musa Galeano ED Midlevel Provider: Mildred Cantu Primary Care Provider: UNKNOWN, Attending Provider: Joseph Avery Other Providers: Joseph Avery Status ED Status: Left Department Discharge Information Discharge Date/Time: 12/18/17 10:50
[2017-12-17 09:11] LABS: Baso % (Auto) 0.5 % (0.0-2.0); Eos # (Auto) 0.1 th/mm3 (0.0-0.4); Hematocrit 37.9 % (35.0-46.0); Hemoglobin 12.3 gm/dL (11.6-15.3); Lymph # (Auto) 2.3 th/mm3 (1.0-4.8); Mean Corpuscular HGB Conc 32.5 % (32.0-36.0); Mean Corpuscular Hemoglobin 29.7 pg (27.0-34.0); Mean Corpuscular Volume 91.4 fL (80.0-100.0); Mean Platelet Volume 7.3 fL (7.0-11.0); Mono # (Auto) 0.9 th/mm3 (0.0-0.9); Mono % (Auto) 9.1 % (0.0-8.0); Neut # (Auto) 6.6 th/mm3 (1.8-7.7); Neut % (Auto) 66.4 % (16.0-70.0); Platelet Count 335 th/mm3 (150-450); Red Blood Count 4.15 mil/mm3 (4.00-5.30); Red Cell Distribution Width 14.5 % (11.6-17.2); White Blood Count 9.9 th/mm3 (4.0-11.0)
[2017-12-17 09:22] LABS: Bacteria,Urine Few /hpf; Bilirubin,Urine Negative (Negative); Clarity,Urine Cloudy (Clear); Color,Urine Amber (Yellw/Straw); Glucose,Urine (UA) Negative (Negative); Leukocyte Esterase,Urine Negative (Negative); Mucus,Urine Moderate /lpf (Occasional); Nitrite,Urine Negative (Negative); Specific Gravity,Urine 1.034 (1.002-1.035); Squamous Epithelial Cell,Urine 13 /hpf (0-5); Urobilinogen,Urine 4 or Greater mg/dL (Less than 2)
[2017-12-17 09:43] LABS: Albumin 3.7 g/dL (3.4-5.0); Anion Gap 8 meq/L (5-15); Aspartate Aminotransferase 51 U/L (15-37); Blood Urea Nitrogen 12 mg/dL (7-18); Calcium 9.2 mg/dL (8.5-10.1); Carbon Dioxide 26.8 meq/L (21.0-32.0); Chloride 108 meq/L (98-107); Glomerular Filtration Rate 67 mL/min (>89); Glucose,Random 93 mg/dL (74-106); Potassium 3.8 meq/L (3.5-5.1); Sodium 143 meq/L (136-145)
[2017-12-17 09:45] LABS: Alanine Aminotransferase 34 U/L (10-53)
[2017-12-17 09:54] LABS: Alkaline Phosphatase 70 U/L (45-117); Total Protein 7.9 g/dL (6.4-8.2)
[2017-12-17 10:02] LABS: Amphetamine Screen,Urine Neg (Neg); Barbiturate Screen,Urine Neg (Neg); Cannabinoid Screen,Urine Neg (Neg); Cocaine Screen,Urine Pos (Neg)
[2017-12-17 10:14] LABS: Opiate Screen,Urine Neg (Neg)
[2017-12-17] MEDS ORDERED: Acetaminophen 500 MG Tablet PO ONE (12:58)
[2017-12-18] MEDS ORDERED: Bisacodyl 10 MG Supp RECTAL PRN (08:29)
[2017-12-18] MEDS ORDERED: Haloperidol Inj 5 MG/ML Ampul IV.PUSH PRN (08:29)
[2017-12-18] MEDS ORDERED: Aluminum/Magnesium/Simethacone Susp 30 ML UDC PO PRN (08:29)
[2017-12-18] MEDS ORDERED: LORazepam 1 MG Tablet PO PRN (08:29)
[2017-12-18] MEDS: ARIPiprazole 10 MG Tablet PO SCH (09:27)
[2017-12-18] MEDS: traZODone 100 MG Tablet PO SCH (09:28)
[2017-12-18] MEDS: Sertraline 50 MG Tablet PO SCH (09:28)
[2017-12-18] MEDS: Senna/Docusate Sodium 8.6/50 MG Tablet PO SCH ×2 (09:56→21:16)
--- NOTE | 2017-12-18 12:28 | P.HPPSY ---
Provisional Diagnosis Admission Date: December 18, 2017 10:25 Serafina I.: Schizophrenia, Cocaine and alcohol use disorder, R/O SIPD, Serafina II.: Cluster B traits Serafina III.: Obesity Competence Certification of Person's Competence To Provide Express and Informed Consent I have personally examined Og Cardenas, a person being served at [facility] on, December 18, 2017 1215. Express and informed consent means consent voluntarily given in writing, by a competent person, after sufficient explanation and disclosure of the subject matter involved to enable the person to make a knowing and willful decision without any element of force, fraud, deceit, duress, or other form of constraint or coercion. This person is 18 years of age or older, is not now known to be incompetent to consent to treatment with a guardian advocate, and does not have a health care surrogate or proxy currently making medical treatment decisions. I have found this person to be one of the following: [] Competent to provide express and informed consent, as defined above, for voluntary admission to this facility and is competent to provide express and informed consent for treatment. He/she has the consistent capacity to make well reasoned, willful, and knowing decisions concerning his or her medical or mental health treatment. The person fully and consistently understands the purpose of the admission for examination/placement and is fully capable of personally exercising all rights assured [place] Incompetent to provide express and informed consent to voluntary admission, and this is incompetent to provide express and informed consent to treatment. The person must be transferred to involuntary status and a petition for a guardian advocate filed with the Circuit Court. [x] Refusing to provide express and informed consent to voluntary admission but is competent to provide express and informed consent for treatment. The person must be discharged or transferred to involuntary status. Form shall be completed within 24 hours of a person's arrival at the receiving facility and filed in the clinical record of each person: 1. Admitted on a voluntary basis 2. Permitted to provide express and informed consent to his/her own treatment 3. Allowed to transfer from involuntary to voluntary status 4. Prior to permitting a person to consent to his or her own treatment after having been previously found incompetent to consent to treatment. History of Present Illness Capacity: Has capacity History of Present Illness: The patient is a 37-year-old -[place] obese woman, she is domiciled with her mother, single, unemployed, supported by [facility], second time at [facility], with reported psychiatric history of schizophrenia, depression, cocaine use disorder, multiple psychiatric admissions, last hospitalization was here at [facility] in September 2017 under the care of Dr. Avery, documentation reviewed, previous suicidal attempts, she is on Abilify 10 mg, trazodone 100 mg at bedtime , Zoloft 50 mg, outpatient care with Dr. Haynes, no significant medical history , who presents to the emergency department for evaluation as a Ambrosio act with suicidal ideations. Patient states that she ran out of her medications and has been unable to refill them. She also says that she lost them. She has been unable to see her primary care physician. She has no other complaints today. She is having auditory hallucinations. She also has had thoughts of self-harm but has no plan on hurting herself. No homicidal ideation. She is positive for cocaine, also reports occasional use of alcohol recently. Patient states that she would like to get back on her medicines. EMR was reviewed. I try to get collateral information from her mother to the telephone [phone], but her mother did not pick up driver the phone. On my psychiatric evaluation today the patient is found sleeping, difficult to arouse. Once the patient is awake and alert, the patient seems to be quite reluctant and oppositional to cooperate with evaluation. She answers just selectively to some my questions. She states that she has been hearing voices telling her to kill herself, she has been feeling quite depressed with persistent suicidal ideation, she has been treated her voices with cocaine and alcohol, "had not been taking her medication for at least 3 weeks , I lost my pills". He says that she would like to try Depo medications. She would like to go back to her psychotropics. The patient is oddly related, seems to be internally preoccupied, very guarded. She is oriented 3, no attention deficit present. No signs of intoxication or withdrawal present. No agitation or aggressive behavior at this moment. PPHx: psychiatric history of schizophrenia, depression, cocaine use disorder, multiple psychiatric admissions, last hospitalization was here at [facility] in September 2017 under the care of Dr. Avery, documentation reviewed, previous suicidal attempts, she is on Abilify 10 mg, trazodone 100 mg at bedtime, Zoloft 50 mg, outpatient care with Dr. Haynes PMHx She denies past medical history Substance Hx: The patient reports daily use of cocaine, occasional use of alcohol Family Hx: Her father has bipolar disorder Social HX: The patient was born and raised in [place], she lives with her mother in [facility], unemployed, single, supported by [facility], her highest level of education is high school - Inpatient Certification I certify that the inpatient services were ordered in accordance with Medicare regulations governing the order. This includes certification that hospital inpatient services are reasonable and necessary and in the case of services not specified as inpatient-only under 42 CFR 419.22(n), that they are appropriately provided as inpatient services in accordance to with the 2-midnight benchmark under 43 CFR 412.3(e) I certify that inpatient psychiatric hospital services are medically necessary. Evaluation and treatment and/or diagnostic testing are expected to improve the patient's condition. The patient needs on a daily basis, active treatment furnished directly by or requiring the supervision of inpatient psychiatric facility personnel. Estimated Total Length of Stay (Days): 7 Plans for Post Hospital Care: Not yet determined Review of Systems All other systems reviewed negative except as stated in HPI Psychiatric: Reports depression, Reports irritability, Reports sensing things others do not sense, Reports thoughts of hurting/killing yourself PMFSH - History History Provided By: Patient - Medical History Medical History: Medical History (Last Updated 12/17/17 @ 08:28 by Kayden Howard RN) Bipolar disorder Patient denies medical problems Schizophrenia - Surgical History Surgical History: Surgical History (Last Updated 12/17/17 @ 08:28 by Kayden Howard RN) No history of previous surgery - Tobacco History Tobacco Use In Past 30 Days: Yes Smoking Status: Current every day smoker Tobacco Type: Cigarettes - Alcohol History How Often Do You Have a Drink Containing Alcohol: 2 to 4 times a month - Substance Use History Substance History: Active Abuse - Substance Use Type Crack/Cocaine Status: Active Route Used: Inhalation Reason for Use: Get High - Travel History Recent Travel in the [facility] Within the Last 8 Weeks: No Recent Travel Out of the Country Within the Last 8 Weeks: No - Immunization History Tetanus Immunization: <5 Years Medications and Allergies Active Medications: Active Medications Al Hydrox/Mg Hydrox/Simethicone (Mag-Al Plus Susp Liq) 30 ml PO Q6H PRN PRN Reason: DYSPEPSIA Al Hydroxide/Mg Hydroxide (Milk Of Magnesia Liq) 30 ml PO Q12H PRN PRN Reason: Mild Constipation Aripiprazole (Abilify) 10 mg PO DAILY [facility] Last Admin: 12/18/17 09:27 Dose: 10 mg Bisacodyl (Dulcolax Supp) 10 mg RECTAL DAILY PRN PRN Reason: SEVERE CONSITIPATION Flumazenil (Romazecon Inj) 0.2 mg IV.PUSH Q1M PRN PRN Reason: OVERSEDATION Haloperidol Lactate (Haldol Inj) 1 mg IV.PUSH Q15M PRN PRN Reason: for severe agitation Lactulose (Lactulose Liq) 30 ml PO DAILY PRN PRN Reason: SEVERE CONSITIPATION Lorazepam (Ativan) 1 mg PO Q4H PRN PRN Reason: for CIWA 8-10 Lorazepam (Ativan) 2 mg PO Q2H PRN PRN Reason: for CIWA 11-14 Lorazepam (Ativan Inj) 2 mg IV.PUSH Q2H PRN PRN Reason: for CIWA 11-14 Lorazepam (Ativan Inj) 2 mg IV.PUSH Q1H PRN PRN Reason: for CIWA 15-20 Lorazepam (Ativan Inj) 2 mg IV.PUSH Q15M PRN PRN Reason: for CIWA > 20 Lorazepam (Ativan Inj) 1 mg IV.PUSH Q4H PRN PRN Reason: for CIWA 8-10 Senna/Docusate Sodium (Tory-Colace) 1 tab PO BID [facility] Last Admin: 12/18/17 09:56 Dose: 1 tab Sennosides (Senokot) 17.2 mg PO Q12H PRN PRN Reason: Moderate Constipation Sertraline HCl (Zoloft) 50 mg PO DAILY [facility] Last Admin: 12/18/17 09:28 Dose: 50 mg Trazodone HCl (Desyrel) 100 mg PO DAILY [facility] Last Admin: 12/18/17 09:28 Dose: 100 mg Allergies Allergy/AdvReac Type Severity Reaction Status Date / Time No Known Allergies Allergy Verified 12/17/17 08:45 Home Medications Medication Instructions Recorded Confirmed Type aripiprazole [Abilify] 10 mg PO DAILY 12/17/17 12/17/17 History sertraline [Zoloft] 50 mg PO DAILY 12/17/17 12/17/17 History trazodone 100 mg PO DAILY 12/17/17 12/17/17 History Results - Labs CBC & Chem 7: 12/17/17 09:00 12/17/17 09:00 Exam Vital signs: Vital Signs 12/18/17 06:15 12/18/17 09:55 Temperature 98.6 F Pulse Rate 71 Respiratory Rate 20 18 Blood Pressure 125/80 Pulse Oximetry 100 Intake & Output 12/17/17 12/18/17 12/18/17 18:59 06:59 18:59 Weight 140 kg Narrative: No tremors, no EPS, no psychomotor agitation retardation, no catatonia, no withdrawal present Mental Status Examination Appearance: Disheveled Consciousness: Alert Orientation: x4 Motor Activity: Normal gait Speech: Unremarkable Language: Adequate Fund of Knowledge: Adequate Attention and Concentration: Adequate Memory: Unremarkable Mood: Appropriate Affect: Appropriate Thought Process & Associations: Intact Thought Content: Bizarre thinking, Hallucinations Hallucination Type: Auditory Delusion Type: None Suicidal Ideation: Yes Suicidal Plan: No Suicidal Intention: No Homicidal Ideation: No Homicidal Plan: No Homicidal Intention: No Insight: Poor Judgment: Poor Assessment and Plan - Assessment (1) Schizophrenia Code(s): F20.9 - Schizophrenia, unspecified Status: Acute - Plan Plan: Estimated LOS: [] days On psychiatric evaluation today the patient presents with commanding type auditory hallucinations of voices telling her to kill herself in the context of noncompliance with psychotropics and also in the context of daily use of cocaine and occasional use of alcohol. Patient also reports depression, and suicidal ideation, no plan. The patient has a psychiatric history of schizophrenia, previous psychiatric hospitalizations, suicide attempts, she supposed to be in a psychotropic regimen, but she is not taking the medications. At this moment the patient has an increased risk of danger to self , she needs psychiatric admission for stabilization. I will restart Abilify 10 mg, trazodone 100 mg and Zoloft 50 mg. The patient may benefit of Abilify Maintena to assure compliance. Will be transferred to 2700 unit. I will consult psychiatry for second opinion. Brief supportive psychotherapy provided. Justification for Continued Inpatient Stay: Patient is to be admitted.
--- NOTE | 2017-12-18 15:59 | P.CONPSY ---
Provisional Diagnosis Admission Date: December 18, 2017 10:25 Idalou I.: Schizophrenia, Cocaine and alcohol use disorder, R/O SIPD, Idalou II.: Cluster B traits Idalou III.: Obesity History of Present Illness Service: Psychiatry Consult date: 12/18/17 Requesting Physician: Sukhwinder Parisi Reason for Consult: Second opinion petition supporting [facility] Primary Care Provider: UNKNOWN History of Present Illness: Patient is a 37-year-old female well known to us from multiple prior contacts admitted to the Dr. Win service under the Ambrosio act his them in first opinion petition supporting [facility]. Patient seen by me she continues psychotic with auditory hallucinations irritable and somewhat demanding. Questionable compliance with medication.. At this time patient meets criteria for involuntary psychiatric hospitalization thus I will cosign second opinion petition supporting [facility] Review of Systems All other systems reviewed negative except as stated in HPI PMFSH - History History Provided By: Patient - Medical History Medical History: Medical History (Last Updated 12/17/17 @ 08:28 by Kayden Howard RN) Bipolar disorder Patient denies medical problems Schizophrenia - Surgical History Surgical History: Surgical History (Last Updated 12/17/17 @ 08:28 by Kayden Howard RN) No history of previous surgery - Tobacco History Tobacco Use In Past 30 Days: Yes Smoking Status: Current every day smoker Tobacco Type: Cigarettes - Alcohol History How Often Do You Have a Drink Containing Alcohol: 2 to 4 times a month - Substance Use History Substance History: Active Abuse - Substance Use Type Crack/Cocaine Status: Active Route Used: Inhalation Reason for Use: Get High - Travel History Recent Travel in the [place] Within the Last 8 Weeks: No Recent Travel Out of the Country Within the Last 8 Weeks: No - Immunization History Tetanus Immunization: <5 Years Medications and Allergies Active Medications: Active Medications Al Hydrox/Mg Hydrox/Simethicone (Mag-Al Plus Susp Liq) 30 ml PO Q6H PRN PRN Reason: DYSPEPSIA Al Hydroxide/Mg Hydroxide (Milk Of Magnesia Liq) 30 ml PO Q12H PRN PRN Reason: Mild Constipation Aripiprazole (Abilify) 10 mg PO DAILY [facility] Last Admin: 12/18/17 09:27 Dose: 10 mg Bisacodyl (Dulcolax Supp) 10 mg RECTAL DAILY PRN PRN Reason: SEVERE CONSITIPATION Flumazenil (Romazecon Inj) 0.2 mg IV.PUSH Q1M PRN PRN Reason: OVERSEDATION Haloperidol Lactate (Haldol Inj) 1 mg IV.PUSH Q15M PRN PRN Reason: for severe agitation Lactulose (Lactulose Liq) 30 ml PO DAILY PRN PRN Reason: SEVERE CONSITIPATION Lorazepam (Ativan) 1 mg PO Q4H PRN PRN Reason: for CIWA 8-10 Lorazepam (Ativan) 2 mg PO Q2H PRN PRN Reason: for CIWA 11-14 Lorazepam (Ativan Inj) 2 mg IV.PUSH Q2H PRN PRN Reason: for CIWA 11-14 Lorazepam (Ativan Inj) 2 mg IV.PUSH Q1H PRN PRN Reason: for CIWA 15-20 Lorazepam (Ativan Inj) 2 mg IV.PUSH Q15M PRN PRN Reason: for CIWA > 20 Lorazepam (Ativan Inj) 1 mg IV.PUSH Q4H PRN PRN Reason: for CIWA 8-10 Senna/Docusate Sodium (Tory-Colace) 1 tab PO BID [facility] Last Admin: 12/18/17 09:56 Dose: 1 tab Sennosides (Senokot) 17.2 mg PO Q12H PRN PRN Reason: Moderate Constipation Sertraline HCl (Zoloft) 50 mg PO DAILY [facility] Last Admin: 12/18/17 09:28 Dose: 50 mg Trazodone HCl (Desyrel) 100 mg PO DAILY [facility] Last Admin: 12/18/17 09:28 Dose: 100 mg Allergies Allergy/AdvReac Type Severity Reaction Status Date / Time No Known Allergies Allergy Verified 12/17/17 08:45 Home Medications Medication Instructions Recorded Confirmed Type aripiprazole [Abilify] 10 mg PO DAILY 12/17/17 12/17/17 History sertraline [Zoloft] 50 mg PO DAILY 12/17/17 12/17/17 History trazodone 100 mg PO DAILY 12/17/17 12/17/17 History Exam Vital signs: Vital Signs 12/18/17 06:15 12/18/17 09:55 12/18/17 14:24 Temperature 98.6 F 98.3 F Pulse Rate 71 87 Respiratory Rate 20 18 18 Blood Pressure 125/80 117/72 Pulse Oximetry 100 Intake & Output 12/17/17 12/18/17 12/18/17 18:59 06:59 18:59 Weight 140 kg 140 kg Other: Weight On Admission 140 kg Narrative: Patient seen and silverio she is in no respiratory distress, no complaints of chest pain or abdominal pain. Patient moving all 4 extremities without difficulty Mental Status Examination Appearance: Disheveled Consciousness: Alert Orientation: x4 Motor Activity: Normal gait Speech: Unremarkable Language: Adequate Fund of Knowledge: Adequate Attention and Concentration: Adequate Memory: Unremarkable Mood: Appropriate Affect: Appropriate Thought Process & Associations: Intact Thought Content: Bizarre thinking, Hallucinations Hallucination Type: Auditory Delusion Type: None Suicidal Ideation: Yes Suicidal Plan: No Suicidal Intention: No Homicidal Ideation: No Homicidal Plan: No Homicidal Intention: No Insight: Poor Judgment: Poor Assessment and Plan - Assessment (1) Schizophrenia Code(s): F20.9 - Schizophrenia, unspecified Status: Acute - Plan Plan: Patient meets criteria for involuntary psychiatric hospitalization thus I will cosign second opinion petition supporting Ambrosio act Justification for Continued Inpatient Stay: At this time patient would decompensate a place to a lower level of care Discharge Planning: To be determined (1) Schizophrenia Qualifiers: Schizophrenia type: paranoid schizophrenia Qualified Code(s): F20.0 - Paranoid schizophrenia
[2017-12-19] MEDS: Sertraline 50 MG Tablet PO SCH (08:40)
[2017-12-19] MEDS: traZODone 100 MG Tablet PO SCH ×2 (08:40→12:44)
[2017-12-19] MEDS: Senna/Docusate Sodium 8.6/50 MG Tablet PO SCH ×3 (08:41→21:13)
[2017-12-19] MEDS: ARIPiprazole 10 MG Tablet PO SCH ×2 (08:41→20:41)
--- NOTE | 2017-12-19 14:38 | P.PNPSY ---
Subjective Remarks: Patient seen and silverio with nurse Dana, patient calm pleasant with me though she has vigilant somewhat distractible. Stating she sees a clinician and Antwan avendaño. Has been out of her medication for 3 or 4 days leading to increased auditory hallucinations of somewhat threatening command nature telling her to harm herself. She states she has heard no voices since last night. She states she does live with her mother. And hopes to go back to her home. We need to verify patient's mental health facility in the community. Review of Systems All other systems reviewed negative except as stated in HPI Mental Status Examination Appearance: Disheveled Consciousness: Alert Orientation: x4 Motor Activity: Normal gait Speech: Unremarkable Language: Adequate Fund of Knowledge: Adequate Attention and Concentration: Adequate Memory: Unremarkable Mood: Appropriate, Irritable Affect: Other (Slight increased range and intensity) Thought Process & Associations: Intact Thought Content: Bizarre thinking, Hallucinations Hallucination Type: Auditory Delusion Type: None Suicidal Ideation: Yes (Vague intermittent today) Suicidal Plan: No Suicidal Intention: No Homicidal Ideation: No Homicidal Plan: No Homicidal Intention: No Insight: Poor Judgment: Poor Assessment and Plan - Assessment (1) Schizophrenia Code(s): F20.9 - Schizophrenia, unspecified Status: Acute - Plan Plan: Patient remained psychotic delusional she states the voices are diminishing and she feels somewhat calmer. Being back on her medication. We will increase her Abilify at this time to 10 mg twice daily Justification for Continued Inpatient Stay: At this time patient would decompensate a place to a lower level of care Discharge Planning: Probable return home with family Request Healthcare Surrogate/Guardian Advocate?: No (1) Schizophrenia Qualifiers: Schizophrenia type: paranoid schizophrenia Qualified Code(s): F20.0 - Paranoid schizophrenia
[2017-12-20 07:44] LABS: Anion Gap 9 meq/L (5-15); Blood Urea Nitrogen 11 mg/dL (7-18); Calcium 8.3 mg/dL (8.5-10.1); Carbon Dioxide 26.9 meq/L (21.0-32.0); Chloride 108 meq/L (98-107); Cholesterol 96 mg/dL (120-200); Glomerular Filtration Rate Greater Than 89 mL/min (>89); Glucose,Random 101 mg/dL (74-106); Sodium 144 meq/L (136-145)
[2017-12-20 07:51] LABS: Chol/HDL Ratio 3.01 Ratio; HDL Cholesterol 31.8 mg/dL (40.0-60.0); LDL Cholesterol,Calculated 53 mg/dL (0-99); Triglycerides 54 mg/dL (42-150)
[2017-12-20] MEDS: ARIPiprazole 10 MG Tablet PO SCH ×2 (08:33→20:40)
[2017-12-20] MEDS: Sertraline 50 MG Tablet PO SCH (08:34)
[2017-12-20] MEDS: traZODone 100 MG Tablet PO SCH (08:34)
[2017-12-20] MEDS: Senna/Docusate Sodium 8.6/50 MG Tablet PO SCH ×2 (08:34→20:40)
--- NOTE | 2017-12-20 15:23 | P.PNPSY ---
Subjective Remarks: Patient seen and silverio with nurse Dana, patient somewhat excited about researching different residential programs. She denies voices at this time denies suicidality she is calm cooperative with us. At this time I feel patient is a capacity to sign voluntary thus I will lift Ambrosio act low patient signed voluntary. We will continue medications no change continue to work with placement issues Review of Systems All other systems reviewed negative except as stated in HPI Mental Status Examination Appearance: Disheveled Consciousness: Alert Orientation: x4 Motor Activity: Normal gait Speech: Unremarkable Language: Adequate Fund of Knowledge: Adequate Attention and Concentration: Adequate Memory: Unremarkable Mood: Appropriate, Irritable Affect: Other (Slight increased range and intensity) Thought Process & Associations: Intact Thought Content: Bizarre thinking (Improving) Hallucination Type: None Delusion Type: None Suicidal Ideation: No Suicidal Plan: No Suicidal Intention: No Homicidal Ideation: No Homicidal Plan: No Homicidal Intention: No Insight: Poor Judgment: Poor Assessment and Plan - Assessment (1) Schizophrenia Code(s): F20.9 - Schizophrenia, unspecified Status: Acute - Plan Plan: Patient's psychosis is resolving at this time patient does not meet Ambrosio criteria will lift Ambrosio act allow her to sign voluntary Justification for Continued Inpatient Stay: At this time patient would decompensate if not placed in an appropriate level of care Discharge Planning: To be determined Request Healthcare Surrogate/Guardian Advocate?: No (1) Schizophrenia Qualifiers: Schizophrenia type: paranoid schizophrenia Qualified Code(s): F20.0 - Paranoid schizophrenia
[2017-12-21] MEDS: traZODone 100 MG Tablet PO SCH (09:08)
[2017-12-21] MEDS: Senna/Docusate Sodium 8.6/50 MG Tablet PO SCH ×2 (09:08→20:46)
[2017-12-21] MEDS: ARIPiprazole 10 MG Tablet PO SCH ×2 (09:08→20:46)
[2017-12-21] MEDS: Sertraline 50 MG Tablet PO SCH (09:08)
--- NOTE | 2017-12-21 12:45 | P.PNPSY ---
Subjective Remarks: Patient is seen and silverio with nurse Glynn, chart reviewed, patient compliant medications. It appears patient was just talking to her mother on the telephone. Patient states her mother is moved to [place] permanently. When asked about this patient made vague somewhat contradictory statements about wanting to go there with her. When talking about going to a residential type facility. I suggested she allow us to talk with the mother and get a definite location in [place] if there is a possibility that she may be placed with her family as opposed to a residential facility. Patient remains somewhat labile at times somewhat irritable but redirectable Review of Systems All other systems reviewed negative except as stated in HPI Mental Status Examination Appearance: Disheveled Consciousness: Alert Orientation: x4 Motor Activity: Normal gait Speech: Unremarkable Language: Adequate Fund of Knowledge: Adequate Attention and Concentration: Adequate Memory: Unremarkable Mood: Appropriate, Irritable Affect: Other (Slight increased range and intensity) Thought Process & Associations: Intact Thought Content: Bizarre thinking (Improving) Hallucination Type: None Delusion Type: None Suicidal Ideation: No Suicidal Plan: No Suicidal Intention: No Homicidal Ideation: No Homicidal Plan: No Homicidal Intention: No Insight: Poor Judgment: Poor Assessment and Plan - Assessment (1) Schizophrenia Code(s): F20.9 - Schizophrenia, unspecified Status: Acute - Plan Plan: Patient remained somewhat psychotic and paranoid giving a confusing information related to possible placement issues. Placement recommendations have been sent out by these counselor. For now continue treatment Justification for Continued Inpatient Stay: At this time patient would decompensate a place to a lower level of care Discharge Planning: To be determined Request Healthcare Surrogate/Guardian Advocate?: No (1) Schizophrenia Qualifiers: Schizophrenia type: paranoid schizophrenia Qualified Code(s): F20.0 - Paranoid schizophrenia
[2017-12-21 18:23] VITALS: BP 180/86; PULSE 61; TEMP 97.9; O2SAT 100
[2017-12-22 06:15] VITALS: RESP 20
[2017-12-22] MEDS: ARIPiprazole 10 MG Tablet PO SCH (08:25)
[2017-12-22] MEDS: Sertraline 50 MG Tablet PO SCH (08:25)
[2017-12-22] MEDS: Senna/Docusate Sodium 8.6/50 MG Tablet PO SCH (08:25)
[2017-12-22] MEDS: traZODone 100 MG Tablet PO SCH (08:25)
--- NOTE | 2017-12-22 15:58 | P.DSPSY ---
Psychiatry Discharge Summary Inpatient Psychiatric care?: Yes Advance Directives: No Mental Health Advance Directive: No Health Care Proxy: No - Admission Admission Date: December 18, 2017 10:25 - Admission Diagnosis (1) Schizophrenia Code(s): F20.9 - Schizophrenia, unspecified Brief History: The patient is a 37-year-old -[place] obese woman, she is domiciled with her mother, single, unemployed, supported by [employer], second time at [facility], with reported psychiatric history of schizophrenia, depression, cocaine use disorder, multiple psychiatric admissions, last hospitalization was here at [facility] in September 2017 under the care of Dr. Avery, documentation reviewed, previous suicidal attempts, she is on Abilify 10 mg, trazodone 100 mg at bedtime , Zoloft 50 mg, outpatient care with Dr. Haynes, no significant medical history , who presents to the emergency department for evaluation as a Ambrosio act with suicidal ideations. Patient states that she ran out of her medications and has been unable to refill them. She also says that she lost them. She has been unable to see her primary care physician. She has no other complaints today. She is having auditory hallucinations. She also has had thoughts of self-harm but has no plan on hurting herself. No homicidal ideation. She is positive for cocaine, also reports occasional use of alcohol recently. Patient states that she would like to get back on her medicines. EMR was reviewed. I try to get collateral information from her mother to the telephone [phone], but her mother did not pear picker the phone. On my psychiatric evaluation today the patient is found sleeping, difficult to arouse. Once the patient is awake and alert, the patient seems to be quite reluctant and oppositional to cooperate with evaluation. She answers just selectively to some my questions. She states that she has been hearing voices telling her to kill herself, she has been feeling quite depressed with persistent suicidal ideation, she has been treated her voices with cocaine and alcohol, "had not been taking her medication for at least 3 weeks , I lost my pills". He says that she would like to try Depo medications. She would like to go back to her psychotropics. The patient is oddly related, seems to be internally preoccupied, very guarded. She is oriented 3, no attention deficit present. No signs of intoxication or withdrawal present. No agitation or aggressive behavior at this moment. PPHx: psychiatric history of schizophrenia, depression, cocaine use disorder, multiple psychiatric admissions, last hospitalization was here at [facility] in September 2017 under the care of Dr. Avery, documentation reviewed, previous suicidal attempts, she is on Abilify 10 mg, trazodone 100 mg at bedtime, Zoloft 50 mg, outpatient care with Dr. Haynes PMx She denies past medical history Substance Hx: The patient reports daily use of cocaine, occasional use of alcohol Family Hx: Her father has bipolar disorder Social HX: The patient was born and raised in [place], she lives with her mother in [facility], unemployed, single, supported by [employer], her highest level of education is high school Tobacco Use In Past 30 Days: No How Often Do You Have a Drink Containing Alcohol: Never Hospital Course: Patient's hospital course was essentially uneventful, her paranoia and lability and auditory hallucinations slowly diminished however there remains some mild lability vigilance and irritability. However she has been compliant with the medications has been no behavior problems on the unit. Patient is voluntary this time she wishes to be discharged. Patient does not meet criteria for involuntary psychiatric hospitalization. Thus she feels is reached maximum benefit of this hospitalization she will be discharged today to herself with Rx times a month to follow-up [facility] act - Discharge Discharge Date: 12/22/17 - Discharge Diagnosis (1) Schizophrenia Diagnosis: Principal Code(s): F20.9 - Schizophrenia, unspecified Status: Acute Discharge Disposition: Home - Discharge Instructions Activities You Can Perform: Regular- No Restrictions - Discharge Time <= 30 minutes Mental Status Examination Appearance: Disheveled Consciousness: Alert Orientation: x4 Motor Activity: Normal gait Speech: Unremarkable Language: Adequate Fund of Knowledge: Adequate Attention and Concentration: Adequate Memory: Unremarkable Mood: Appropriate, Irritable Affect: Other (Slight increased range and intensity) Thought Process & Associations: Intact Thought Content: Bizarre thinking (Improving) Hallucination Type: None Delusion Type: None Suicidal Ideation: No Suicidal Plan: No Suicidal Intention: No Homicidal Ideation: No Homicidal Plan: No Homicidal Intention: No Insight: Poor Judgment: Poor Discharge/Advance Care Plan - Results Vital Signs: Last Vital Signs Temp 97.9 F 12/21/17 18:22 Pulse 61 12/21/17 18:22 Resp 20 12/22/17 06:14 BP 180/86 H 12/21/17 18:22 Pulse Ox 100 12/21/17 18:22 Lab Results: Laboratory Results Hemoglobin A1c 6.0 % (4.3-6.0) 12/20/17 06:15 Triglycerides 54 mg/dL (42-150) 12/20/17 06:15 Cholesterol 96 mg/dL (120-200) L 12/20/17 06:15 LDL Cholesterol, Calc 53 mg/dL (0-99) 12/20/17 06:15 HDL Cholesterol 31.8 mg/dL (40.0-60.0) L 12/20/17 06:15 TSH 1.560 uIU/mL (0.358-3.740) 12/17/17 09:00 Urine Culture Comments Culture not ind 12/17/17 09:00 Summary of Procedures: None done Pending Results: None - Medications Number of antipsychotic medications at discharge: 1 - Discharge Care Plan Goals to Promote Your Health: * To prevent worsening of your condition and complications * To maintain your health at the optimal level Directions to Meet Your Goals: Take your medications as prescribed Follow your dietary instruction Follow activity as directed Keep your appointments as scheduled Take your immunizations and boosters as scheduled If your symptoms worsen call your PCP, if no PCP go to Urgent Care Center or Emergency Room For 31/10 questions related to your inpatient stay or results of tests pending at discharge, please contact Dr. Joseph Avery MD at Smoking is Dangerous to Your Health. Avoid second hand smoking (1) Schizophrenia Qualifiers: Schizophrenia type: paranoid schizophrenia Qualified Code(s): F20.0 - Paranoid schizophrenia (1) Schizophrenia Qualifiers: Schizophrenia type: paranoid schizophrenia Qualified Code(s): F20.0 - Paranoid schizophrenia
== END 2017-12-22 16:20 | disposition home or self-care (01) ==
LOC: NEPD 08:12 → NEDA 12-18 10:25 → H270 12-18 10:36
PROVIDERS: ADMIT Psychiatry & Neurology Psychiatry; ATTEND Psychiatry & Neurology Psychiatry